=== PATIENT | male | born 1960 | race Caucasian/White ===

== ENCOUNTER → 2016-12-07 | Outpatient (CLI) | payer MEDICARE ==
[~2016-12-07] MED LIST: CARAFATE 1GM1 G PO; CENTRUM SILVER1 CTB PO; COLACE 100100 MG/CAP PO; COUMADIN 5MG5 MG/TAB PO; LOPRESSOR100 MG PO; LOVENOX 100100 MG/ML; PRAVACHOL 20MG20 MG PO; PRILOSEC 20MG20 MG PO
== END ==
LOC: COL.RAD 08:45
DX: I71.4 Abdominal aortic aneurysm, without rupture (principal)

== ENCOUNTER → 2017-05-23 | Outpatient (CLI) | payer MEDICARE | LOC: COL.RAD 10:55 | DX: I77.810 Thoracic aortic ectasia (principal); I25.810 Atherosclerosis of coronary artery bypass graft(s) without angina pectoris; N20.0 Calculus of kidney; Z95.1 Presence of aortocoronary bypass graft; Z98.890 Other specified postprocedural states | CPT/HCPCS: Q9967 ==

== ENCOUNTER → 2018-06-02 | Outpatient (CLI) | payer MEDICARE | LOC: COL.RAD 10:42 | DX: I71.9 Aortic aneurysm of unspecified site, without rupture (principal); N20.0 Calculus of kidney; Z98.890 Other specified postprocedural states | CPT/HCPCS: Q9967 ==

== ENCOUNTER 2020-10-04 16:50 | Emergency (ER) | payer MEDICARE ==
[~2020-10-04] VITALS: Ht 157.5 cm; Wt 120.5 kg
[2020-10-04 18:13] LABS: BASO % 0.3 % (0.0-2.0); EOS # 0.1 (0.0-0.7); EOS % 1.6 % (0-4.0); GRAN # 5.5 (1.4-6.5); GRAN % 71.2 % (42.2-75.2); HEMATOCRIT 43.8 % (42.0-52.0); HEMOGLOBIN 14.7 g/dl (13.5-18.0); LYMPH # 1.3 (1.2-3.4); LYMPH % 16.6 % (20.0-51.0); MEAN CELL VOLUME 88 fl (80.0-100.0); MEAN CORPUSCULAR HEMOGLOBIN 30 pg (27.0-31.0); MEAN CORPUSCULAR HGB CONC 34 g/dl (33.0-37.0); MEAN PLATELET VOLUME 9.9 fl (7.4-10.4); MONO # 0.8 (0.1-0.6); MONO % 9.9 % (1.7-9.3); PLATELET COUNT 205 K/mm3 (130-400); RED BLOOD COUNT 4.96 M/mm3 (4.20-5.60); REDCELL DISTRIBUTION WIDTH-CV 13.9 % (11.5-14.5)
[2020-10-04 18:20] LABS: PROTHROMBIN TIME 33.6 SECONDS (9.7-12.8)
[2020-10-04 18:30] LABS: ALBUMIN 4.2 gm/dL (3.5-5.0); BILIRUBIN,TOTAL 0.9 mg/dL (0.0-1.0); CALCIUM 9.2 mg/dL (8.4-10.2); CREATININE, serum 0.83 (0.66-1.25); POTASSIUM 3.3 mmol/L (3.4-5.0); TOTAL PROTEIN 8.5 gm/dL (6.4-8.2)
[2020-10-04 18:53] LABS: C-REACTIVE PROTEIN 14.7 mg/dL (0.0-0.9)
[2020-10-04 19:06] LABS: TROPONIN-I 0.023 ng/mL (0.000-0.035)
[2020-10-04 19:59] LABS: COLLECTION METHOD CLEAN CATCH
[2020-10-04 20:27] LABS: MUCOUS Present /lpf; PH 5 (5-8); SQUAMOUS EPITHELIAL None Seen /hpf; URINE APPEARANCE Cloudy; URINE BACTERIA None Seen /hpf; URINE BILIRUBIN Negative (NEGATIVE); URINE BLOOD 3+ (NEGATIVE); URINE COLOR Yellow; URINE GLUCOSE Negative (NEGATIVE); URINE KETONE Negative (NEGATIVE); URINE LEUKOCYTE ESTERASE Negative (NEGATIVE); URINE NITRATE Negative (NEGATIVE); URINE PROTEIN(semi-quant) 1+ (NEGATIVE); URINE RBC >50 /hpf; URINE UROBILINOGEN Negative (NEGATIVE)
[2020-10-04 21:20] VITALS: BP 154/74; PULSE 86; TEMP 98.4
[2020-10-04] MEDS ORDERED: NORCO 325 MG-51 TAB PO (21:33)
[2020-10-04] MEDS ORDERED: LEVSIN 0.10.125 MG/T PO (21:33)
== END 2020-10-04 21:53 | disposition home or self-care (01) ==
LOC: COL.ER 16:50
PROVIDERS: Nurse Practitioner
DX: K52.9 Noninfective gastroenteritis and colitis, unspecified (principal); I10 Essential (primary) hypertension; E78.5 Hyperlipidemia, unspecified; Z20.822 Contact with and (suspected) exposure to COVID-19; Z79.899 Other long term (current) drug therapy
CPT/HCPCS: J1170; J2405; J7030; Q9967

== ENCOUNTER → 2021-01-14 | Outpatient (CLI) | payer MEDICARE ==
[~2021-01-14] MED LIST changes: +LEVSIN 0.10.125 MG/T PO; +NORCO 325 MG-51 TAB PO
== END ==
LOC: COL.RAD 12-26 14:00
DX: Z12.2 Encounter for screening for malignant neoplasm of respiratory organs (principal); F17.211 Nicotine dependence, cigarettes, in remission

== ENCOUNTER 2023-07-12 11:16 | Emergency (ER) | payer MEDICARE, MEDICAID ==
[~2023-07-12] VITALS: Ht 157.5 cm; Wt 122.7 kg
[2023-07-12 11:24] VITALS: TEMP 97
[2023-07-12 11:55] LABS: BASO % 0.4 % (0.0-2.0); EOS # 0.2 K/mm3 (0.0-0.7); EOS % 2.6 % (0.0-4.0); GRAN # 6.8 K/mm3 (1.4-6.5); GRAN % 74.6 % (42.2-75.2); HEMATOCRIT 38.8 % (42.0-52.0); LYMPH # 1.4 K/mm3 (1.2-3.4); LYMPH % 15.4 % (20.0-51.0); MEAN CELL VOLUME 93 fl (80.0-100.0); MEAN CORPUSCULAR HEMOGLOBIN 31 pg (27-31); MEAN CORPUSCULAR HGB CONC 34 g/dl (33.0-37.0); MEAN PLATELET VOLUME 9.6 fl (7.4-10.4); MONO # 0.6 K/mm3 (0.1-0.6); MONO % 6.2 % (1.7-9.3); PLATELET COUNT 263 K/mm3 (130-400); RED BLOOD COUNT 4.18 M/mm3 (4.20-5.60); REDCELL DISTRIBUTION WIDTH-CV 14.7 % (11.5-14.5)
[2023-07-12 12:32] LABS: ALANINE AMINOTRANSFERASE 29 U/L (0-55); ALBUMIN 3.5 g/dL (3.4-4.8); ALKALINE PHOSPHATASE 84 U/L (40-150); ANION GAP 10 mmol/L (7-16); AST,SGOT 27 U/L (5-34); BILIRUBIN,TOTAL 0.4 mg/dL (0.2-1.2); BLOOD UREA NITROGEN 19 mg/dL (8-26); CALCIUM 9.6 mg/dL (8.4-10.2); CHLORIDE 107 mEq/L (98-107); CREATININE, serum 0.88 mg/dL (0.72-1.25); GLUCOSE 113 mg/dL (70-99); POTASSIUM 4.1 mEq/L (3.5-4.5); SODIUM 140 mEq/L (136-145); TOTAL PROTEIN 7.4 g/dl (6.2-8.1)
[2023-07-12 12:43] LABS: TROPONIN-I < 0.010 ng/mL (0.00-0.033)
[2023-07-12 14:30] VITALS: BP 134/90; PULSE 80
== END 2023-07-12 14:34 | disposition home or self-care (01) ==
LOC: COL.ER 11:16
PROVIDERS: Physician Assistant
DX: I48.91 Unspecified atrial fibrillation (principal); I51.7 Cardiomegaly; M79.89 Other specified soft tissue disorders; R73.9 Hyperglycemia, unspecified; Z95.4 Presence of other heart-valve replacement; Z87.891 Personal history of nicotine dependence; Z79.01 Long term (current) use of anticoagulants; Z79.899 Other long term (current) drug therapy